=== PATIENT | female | born 1975 | race Caucasian/White ===

== ENCOUNTER 2017-05-24 20:57 | Emergency (ER) | payer SELFPAY ==
[~2017-05-24] VITALS: Ht 165.1 cm; Wt 105.0 kg
[2017-05-24 21:05] VITALS: BP 144/67; PULSE 60; RESP 20; TEMP 97.7; O2SAT 96
[2017-05-24 22:36] VITALS: BP 199/86; PULSE 76; RESP 18; TEMP 98.3; O2SAT 98
[2017-05-24] MEDS ORDERED: OMEGCAP PO (23:04)
[2017-05-24] MEDS ORDERED: METO1TAB9 PO (23:04)
[2017-05-24] MEDS ORDERED: LEVO-154 PO (23:04)
[2017-05-24] MEDS ORDERED: OMEP40CA2 (23:04)
[2017-05-24] MEDS ORDERED: CYCL5TAB PO (23:04)
[2017-05-24] MEDS ORDERED: KETOROLAC TROMETHAMINE 60 MG/2 ML (IM) VIAL IM ONE (23:15)
[2017-05-24] MEDS ORDERED: traMADol HCL 50 MG TAB PO ONE (23:15)
[2017-05-24 23:55] VITALS: BP 175/97; PULSE 77; RESP 18; O2SAT 98
--- NOTE | 2017-05-25 00:25 | PD ---
HPI . Back pain Chief Complaint: Back/ Neck Pain or Injury Time Seen by Provider: 21:12 Travel History International Travel<30 days: No Contact w/Intl Traveler<30days: No Traveled to known affect area: No History of Present Illness HPI Patient presents with a chief complaint of back pain which started yesterday. It is located in bilateral flanks and radiates to the abdomen. It has been getting progressively worse. She rates it 8/10. She reports no exacerbating or relieving factors. She has no associated symptoms. She specifically denies fever, nausea/vomiting/diarrhea or dysuria/frequency/urgency. She does state that she is on her menstrual cycle. She states that she has tried ibuprofen and Aleve without relief of her symptoms. She states that she discussed these symptoms with her primary care provider by phone earlier today. The primary care provider called her in a prescription for Flexeril. She has had 1 dose of the Flexeril with no relief of her symptoms. PFSH Past Medical History High Cholesterol: Yes Patient Takes Glucophage: No Hypertension: Yes Thyroid Disease: Yes Influenza Vaccination: Yes ?: Not LMP: Now Past Surgical History Ear Surgery: Yes Tonsillectomy: Yes Social History Alcohol Use: Yes (Occasional) Tobacco Use: No Substance Use: No Allergies-Medications (Allergen,Severity, Reaction): Coded Allergies: No Known Allergies (Unverified , 05/24/17) Reported Meds & Prescriptions Reported Meds & Active Scripts Active Reported [place]-3 Fish Oil/Vitamin (Fish Oil-Cholecalciferol) 1,000-1,000 Mg Cap 1 Cap PO DAILY Flexeril (Cyclobenzaprine HCl) 5 Mg Tab 5 Mg PO TID Omeprazole 40 Mg Cap 40 Mg DAILY Levothyroxine (Levothyroxine Sodium) 175 Mcg Tab 175 Mcg PO DAILY Metoprolol Succinate ER 24 HR (Metoprolol Succinate) 50 Mg Tab 50 Mg PO DAILY Review of Systems Except as stated in HPI: all other systems reviewed are Neg Physical Exam Narrative GENERAL: The patient looks uncomfortable. SKIN: warm/dry. HEAD: Normocephalic. Atraumatic. EYES: Pupils equal and round. No scleral icterus. No injection or drainage. ENT: Mucous membranes pink and moist. NECK: Full range of motion without pain.. CARDIOVASCULAR: Regular rate and rhythm. RESPIRATORY: No accessory muscle use. GASTROINTESTINAL: Abdomen soft. Nontender. Bowel sounds present. Nondistended. : No CVA tenderness. MUSCULOSKELETAL: No obvious deformities. No tenderness to percussion of her spine. No paraspinous muscle tenderness. NEUROLOGICAL: Awake and alert. No obvious cranial nerve deficits. Motor grossly within normal limits. Normal speech. PSYCHIATRIC: Appropriate mood and affect; insight and judgment normal. Data Data Last Documented VS Vital Signs Date Time Temp Pulse Resp B/P (MAP) Pulse Ox O2 Delivery O2 Flow Rate FiO2 05/25/17 00:33 18 05/24/17 23:55 77 175/97 (123) 98 Room Air 05/24/17 22:[address] Abd/Pel W/O Iv Contrast (05/24/17 23:12) Tramadol (Ultram) (05/24/17 23:15) Ketorolac Inj (Toradol Inj) (05/24/17 23:15) MDM Medical Decision Making Medical Screen Exam Complete: Yes Emergency Medical Condition: Yes Differential Diagnosis Differential diagnosis includes but is not limited to muscular low back pain, DDD, spinal stenosis, epidural abscess, sciatica, kidney infection or stone. Narrative Course This patient presents with atraumatic back pain. She has no associated symptoms and no exacerbating or relieving factors. Her physical exam is benign. I have ordered a CT of her abdomen and pelvis to look for stone. I doubt this diagnosis because her pain is bilateral. UA would not be helpful and she is currently menstruating. CT: 1. Scattered colonic diverticula. 2. No acute findings in the abdomen and pelvis. Diagnosis Primary Impression: Flank pain Patient Instructions: Flank Pain (ED), General Instructions Additional Instructions: You can safely double your dose of Flexeril. Med/Other Pt SpecificInfo: Prescription(s) given Scripts Tramadol (Ultram) 50 Mg Tab 50 MG PO Q4H Y for PAIN, #12 TAB 0 Refills Prov: Mera Becerra MD 05/25/17 Ibuprofen (Ibuprofen) 800 Mg Tab 800 MG PO Q8H Y for Pain/Inflammation, #60 TAB 0 Refills Prov: Mera Becerra MD 05/25/17 Disposition: 01 DISCHARGE HOME Condition: Stable Mera Becerra MD May 25, 2017 00:25
[2017-05-25 00:55] VITALS: BP 184/94; PULSE 77; RESP 18; O2SAT 96
--- NOTE | 2017-05-25 01:15 | RADRPT ---
EXAM DATE/TIME: 05/24/2017 23:49 [facility] COMPARISON: No previous studies available for comparison. INDICATIONS : Anterior and posterior abdominal pain. ORAL CONTRAST: No oral contrast ingested. RADIATION DOSE: 22.14 CTDIvol (mGy) MEDICAL HISTORY : Hypertension. SURGICAL HISTORY : None. ENCOUNTER: Initial ACUITY: 1 day PAIN SCALE: 8/10 LOCATION: Bilateral lower quadrant TECHNIQUE: Volumetric scanning of the abdomen and pelvis was performed. Using automated exposure control and ad justment of the mA and/or kV according to patient size, radiation dose was kept as low as reasonably achievable to obtain optimal diagnostic quality images. DICOM format image data is available electro nically for review and comparison. FINDINGS: LOWER LUNGS: Mild patchy atelectasis at the medial right lung base. Lung bases are otherwise clear. LIVER: Homogeneous density without lesion. There is no dilation of the biliary tree. No calcified gallston es. SPLEEN: Normal size without lesion. PANCREAS: Within normal limits. KIDNEYS: Normal in size and shape. There is no mass, stone, or hydronephrosis. ADRENAL GLANDS: Within normal limits. VASCULAR: There is no aortic aneurysm. BOWEL/MESENTERY: Scattered colonic diverticula. No evidence of acute diverticulitis. Appendix within normal limits. No free air or free fluid. ABDOMINAL WALL: Within normal limits. RETROPERITONEUM: There is no lymphadenopathy. BLADDER: No wall thickening or mass. REPRODUCTIVE: Within normal limits. INGUINAL: There is no lymphadenopathy or hernia. MUSCULOSKELETAL: Left sacroiliac joint arthrosis noted. CONCLUSION: 1. Scattered colonic diverticula. 2. No acute findings in the abdomen and pelvis. Dar Gardiner MD on May 25, 2017 at 1:08 Board Certified Radiologist. This report was verified electronically.
[2017-05-25] MEDS ORDERED: IBUP1TAB7 PO (01:18)
[2017-05-25] MEDS ORDERED: TRAM50 PO (01:18)
[2017-05-25] MEDS ORDERED: LORazepam 2 MG/ML VIAL IM SCH (01:30)
[2017-05-25] MEDS ORDERED: MORPHINE SULFATE 4 MG/ML INJ IM ONE (01:30)
[2017-05-25 01:56] VITALS: RESP 16
[2017-05-25 02:21] VITALS: BP 166/91
== END 2017-05-25 02:29 | disposition home or self-care (01) ==
LOC: PHED 20:57
DX: K57.30 Diverticulosis of large intestine without perforation or abscess without bleeding (principal); E78.00 Pure hypercholesterolemia, unspecified; I10 Essential (primary) hypertension
CPT/HCPCS: 74176; 96372; 99283; J1885; J2060; J2270